=== PATIENT | female | born 1990 | race Two or more races ===

== ENCOUNTER 2017-02-04 19:51 | Emergency (ER) | payer MEDICAID ==
[~2017-02-04] VITALS: Ht 165.1 cm; Wt 99.8 kg
[2017-02-04] MEDS ORDERED: AUGMENTIN 875-1 EAC1 ORAL (20:55)
[2017-02-04] MEDS ORDERED: IBUPROFEN600 MG ORAL (20:55)
[2017-02-04 21:03] VITALS: BP 132/93
[2017-02-04 21:06] VITALS: BP 132/93
--- NOTE | 2017-02-06 00:55 | Emergency Room Report ---
History of Present Illness General Chief Complaint: Earache Source: Patient Present Illness HPI Patient present with bilateral earache She reports that she had decreased hearing from the right ear Pressure behind her left ear Patient also complains of fore head discomfort Denies any rhinorrhea Denies any fevers or chills denies any neck pain or photophobia The pain in the area is localized above is rated 3/10 sharp Allergies: Coded Allergies: No Known Allergies (Unverified , 02/04/17) Patient History Past Medical History: see triage record Pertinent Family History: none Last Menstrual Period: 02/03/17 Now: No Reviewed Nursing Documentation: PMH: Agreed, PSxH: Agreed Nursing Documentation-PMH Past Medical History: No Stated History Review of Systems All Other Systems: negative except mentioned in HPI Physical Exam Vital Signs Date Time Temp Pulse Resp B/P Pulse Ox O2 Delivery O2 Flow Rate FiO2 02/04/17 20:05 98.4 63 15 138/95 100 Room Air Sp02 EP Interpretation: reviewed, normal General Appearance: well appearing, no apparent distress Head: normocephalic, atraumatic Eyes: bilateral eye EOMI, bilateral eye PERRL ENT: uvula midline - She does have some fullness and discomfort over the forehead sinus, other - Right ear canal shows cerumen impaction, left ear exam reveals some fluid behind the tympanic membrane, mild bulging, canal is otherwise clear Neck: full range of motion, supple, thyroid normal Respiratory: chest non-tender, lungs clear Cardiovascular #1: regular rate, rhythm, no edema Musculoskeletal: normal inspection Neurologic: normal inspection, alert, oriented x3 Skin: no rash, warm/dry Medical Decision Making Diagnostic Impression: Primary Impression: sinusitis Additional Impression: ear impaction ER Course Given the ear examination and the fore head discomfort, there is consideration for possible sinusitis Patient is treated appropriately for this Was also given information for home care for cerumen impaction and will follow up closely with primary physician next 2-3 days Last Vital Signs Date Time Temp Pulse Resp B/P Pulse Ox O2 Delivery O2 Flow Rate FiO2 02/04/17 21:06 98.3 66 14 132/93 100 Room Air Status: improved Disposition: HOME, SELF-CARE Condition: Stable Scripts Ibuprofen* (MOTRIN*) 600 Mg Tablet 600 MG ORAL Q8H Y for For Pain, #20 TAB 0 Refills Prov: BAYLEE BARBER D.O. 02/04/17 Amoxicillin/Potassium Clav 875-125* (AUGMENTIN 875-125 TABLET*) 1 Each Tablet 1 TAB ORAL TWICE A DAY, #14 TAB Prov: BAYLEE BARBER D.O. 02/04/17 Referrals: NOT CHOSEN IPA/MD,REFERRING (PCP) Patient Instructions: Cerumen Impaction, Sinusitis, Adult, [id number] Additional Instructions: Patient is provided with the discharge instructions notified to follow up with primary doctor in the next 2-3 days otherwise return to the er with any worsening symptoms. Please note that this report is being documented using DRAGON technology. This can lead to erroneous entry secondary to incorrect interpretation by the dictating instrument. BAYLEE BARBER D.O. Feb 06, 2017 00:55
== END 2017-02-04 21:06 | disposition home or self-care (01) ==
LOC: EMR 20:30
DX: H61.21 Impacted cerumen, right ear (principal); J32.9 Chronic sinusitis, unspecified
CPT/HCPCS: 99284

== ENCOUNTER 2017-04-27 06:35 | Emergency (ER) | payer MEDICAID, OTHER ==
[~2017-04-27] VITALS: Ht 165.1 cm; Wt 102.5 kg
[~2017-04-27 06:35] MED LIST: AUGMENTIN 875-1 EAC1 ORAL; IBUPROFEN600 MG ORAL
[2017-04-27] MEDS ORDERED: NKM (06:42)
--- NOTE | 2017-04-27 06:53 | Emergency Room Report ---
History of Present Illness General Chief Complaint: Earache Source: Patient Present Illness HPI 27-year-old female presents to ED complaining of left ear pain and cough. States the symptoms started last night. Woke up this morning with ear ache. pain is throbbing, 8/10, nonradiating. Notes dry cough. Denies sore throat. Denies fevers or chills. Denies sick contacts or recent travel. No other aggravating or relieving factors. Denies any other associated symptoms Allergies: Coded Allergies: No Known Allergies (Unverified , 02/04/17) Patient History Past Medical History: none Past Surgical History: none Pertinent Family History: none Social History: Denies: alcohol use, drug use, smoking Last Menstrual Period: March Now: No Immunizations: UTD Reviewed Nursing Documentation: PMH: Agreed, PSxH: Agreed Nursing Documentation-PMH Past Medical History: No Stated History Review of Systems All Other Systems: negative except mentioned in HPI Physical Exam Vital Signs Date Time Temp Pulse Resp B/P Pulse Ox O2 Delivery O2 Flow Rate FiO2 04/27/17 06:38 98.2 87 16 126/71 97 Room Air Sp02 EP Interpretation: reviewed, normal General Appearance: no apparent distress, alert, GCS 15, non-toxic Head: normocephalic Eyes: bilateral eye PERRL, bilateral eye normal inspection ENT: hearing grossly normal, normal pharynx, no angioedema, normal voice, other - L TM poor light reflex. R TM impacted cerumen Neck: normal inspection Respiratory: chest non-tender, lungs clear, normal breath sounds, speaking full sentences Cardiovascular #1: regular rate, rhythm, no edema Gastrointestinal: normal inspection Rectal: deferred Genitourinary: no CVA tenderness Musculoskeletal: normal inspection Neurologic: alert, oriented x3, responsive, motor strength/tone normal, sensory intact, speech normal Psychiatric: normal inspection Skin: normal inspection Lymphatic: normal inspection Medical Decision Making Diagnostic Impression: Primary Impression: Otitis media Qualified Codes: H66.92 - Otitis media, unspecified, left ear Additional Impression: Impacted cerumen, right ear ER Course Hospital Course 27-year-old F presents to ED with pain L ear + cough. no fever. Differential diagnoses include: TM perforation, otitis externa, otitis media Clinical course Patient placed on stretcher. After initial history, physical exam reveals a female in no acute distress. L TM poor light reflex. R TM obscured by cerumen. Remainder of physical exam unremarkable. clinical findings consistent with otitis media Diagnosis - otitis media , cerumen impaction Stable and discharged to home with Rx Carbamide peroxide, augmentin, motrin. Followup with PMD. Return to ED if symptoms recur or worsen Last Vital Signs Date Time Temp Pulse Resp B/P Pulse Ox O2 Delivery O2 Flow Rate FiO2 04/27/17 06:38 98.2 87 16 126/71 97 Room Air Status: improved Disposition: HOME, SELF-CARE Condition: Stable Scripts Ibuprofen* (MOTRIN*) 600 Mg Tablet 600 MG ORAL Q8H Y for For Pain, #30 TAB 0 Refills Prov: CARTER BAKER M.D. 04/27/17 Carbamide Peroxide (DEBROX) 15 Ml Drops 5 DROP BOTH EARS TWICE A DAY for 4 Days, ML 0 Refills Prov: CARTER BAKER M.D. 04/27/17 Amoxicillin/Potassium Clav 875-125* (AUGMENTIN 875-125 TABLET*) 1 Each Tablet 1 TAB ORAL TWICE A DAY for 10 Days, #20 TAB Prov: CARTER BAKER M.D. 04/27/17 CARTER BAKER M.D. Apr 27, 2017 06:53
[2017-04-27] MEDS ORDERED: DEBROX15 M1 BOTH EARS (07:06)
[2017-04-27] MEDS ORDERED: IBUPROFEN600 MG ORAL (07:06)
[2017-04-27] MEDS ORDERED: AUGMENTIN 875-1 EAC1 ORAL (07:06)
[2017-04-27 07:12] VITALS: BP 126/71
== END 2017-04-27 07:14 | disposition home or self-care (01) ==
LOC: EMR 07:08
DX: H66.92 Otitis media, unspecified, left ear (principal); H61.21 Impacted cerumen, right ear; R05 Cough
CPT/HCPCS: 99284